=== PATIENT | male | born 1945 ===

== ENCOUNTER → 2019-11-30 | Outpatient (CLI) | payer MEDICARE, OTHER | END | disposition home or self-care (01) | LOC: EDBD 14:46 → LAB SHORT 14:46 → PLD 14:46 | DX: D22.61 Melanocytic nevi of right upper limb, including shoulder (principal) | CPT/HCPCS: 88305; 88342 ==

== ENCOUNTER → 2020-01-11 | Outpatient (CLI) | payer MEDICARE, OTHER | LOC: PLD 15:09 → LAB SHORT 15:09 | DX: D22.61 Melanocytic nevi of right upper limb, including shoulder (principal) | CPT/HCPCS: 88305 ==

== ENCOUNTER → 2022-02-12 | Outpatient (CLI) | payer MEDICARE, OTHER | END | disposition home or self-care (01) | LOC: LAB SHORT 12:43 → PLD 12:43 | DX: L81.4 Other melanin hyperpigmentation (principal); L57.0 Actinic keratosis | CPT/HCPCS: 88305 ==